=== PATIENT | female | born 1955 | race Caucasian/White ===

== ENCOUNTER 2023-01-26 12:13 | Emergency (ER) | payer MEDICARE, OTHER ==
[~2023-01-26] VITALS: Ht 165.1 cm; Wt 92.3 kg
[~2023-01-26 12:13] MED LIST: ABILIFY2 MG PO; ADDERALL 20 MG20 MG PO; AMITRIPTYLINE H25 MG PO; AMITRIPTYLINE H50 MG PO; CIPROFLOXACIN500 MG PO; CYCLOBENZAPRINE10 MG PO; FISH OIL 1,0001 EAC2 NG; FLUTICASONE PRO16 GM NS; HYDROCODON-ACE1 EA11 PO; IBUPROFEN200 M1 PO; METOPROLOL SUC100 MG PO; NEURONTIN300 MG PO; OMEPRAZOLE40 MG PO; PAROXETINE HCL20 MG PO; SERTRALINE HCL100 MG PO; TIZANIDINE HCL4 MG PO; VENLAFAXINE HC225 MG PO; VITAMIN C1000 MG PO; VITAMIN D350000 UNIT PO; ZYRTEC10 MG
[2023-01-26 12:38] LABS: BASOPHILS 0.8 % (0-2); EOSINOPHILS 3.7 % (0-6); HEMATOCRIT 42.6 % (35.0-50.0); HEMOGLOBIN 14.2 g/dL (12.0-18.0); LYMPHOCYTES 36.2 % (24-44); MCH 28.8 (27-36); MCHC 33.3 g/dl (30-36); MCV 86.4 fl (81-99); MONOCYTES 7.6 % (0-12); NEUTROPHILS 51.7 % (39-80); PLATELET COUNT 356 K/uL (140-440); RBC 4.94 M/ul (4.3-5.7); RDW 14.1 (10.5-15.0)
--- NOTE | 2023-01-26 12:42 | EKG ---
[facility] [address] [facility] [place] [address] Signed Sinus tachycardia Moderate voltage criteria for LVH, may be normal variant ( R in aVL , Mcgraw product ) Nonspecific ST abnormality Abnormal ECG When compared with ECG of 12-DEC-2020 11:19, Nonspecific T wave abnormality has replaced inverted T waves in Inferior leads Nonspecific T wave abnormality, improved in Anterolateral leads Confirmed by TOBIAS DEXTER MD ([id number]) on 01/26/2023 12:42:45 PM Electronically Signed By: TOBIAS DEXTER 01/26/23 1242 PATIENT NAME: PAM TRACY [facility] Electrocardiogram DATE OF : 53 PHYSICIAN: TOBIAS DEXTER REPORT #: [id number] REPORT IS CONFIDENTIAL AND NOT TO BE RELEASED WITHOUT AUTHORIZATION
[2023-01-26 13:13] LABS: ALBUMIN 4.2 g/dL (3.4-5.0); ALBUMIN/GLOBULIN RATIO 0.89 (1.1-2.4); ANION GAP 17.8 (7-21); BILIRUBIN, TOTAL 0.4 ng/dL (0.2-1.0); BUN/CREATININE RATIO 20.68 (6.0-28.6); CALCIUM 9.4 mg/dL (8.5-10.1); CREATININE, SERUM 0.87 mg/dL (0.55-1.02); MAGNESIUM 2.1 mg/dL (1.8-2.4); POTASSIUM 3.8 mmol/L (3.5-5.1); PROTEIN, TOTAL 8.9 g/dL (6.4-8.2)
[2023-01-26 15:52] VITALS: BP 119/83
== END 2023-01-26 15:51 | disposition home or self-care (01) ==
LOC: ED 12:13
PROVIDERS: Emergency Medicine
DX: R06.00 Dyspnea, unspecified (principal); F41.9 Anxiety disorder, unspecified; I10 Essential (primary) hypertension; Z79.899 Other long term (current) drug therapy
CPT/HCPCS: 36415; 71045; 80053; 83735; 83880; 84484; 85025; 85379; 93005; 93010; 99285-25

== ENCOUNTER 2024-09-01 08:58 | Emergency (ER) | payer MEDICARE, OTHER ==
[~2024-09-01] VITALS: Ht 165.1 cm; Wt 97.0 kg
[2024-09-01] MEDS ORDERED: LIDOCAINE HCL 4% 1 EACH PATCH TD ONE (09:15)
[2024-09-01] MEDS ORDERED: HYDROCODONE/ACETA 5/325 TAB PO ONE (09:15)
[2024-09-01] MEDS ORDERED: IBUPROFEN 600 MG TAB PO ONE (09:15)
[2024-09-01 11:51] VITALS: BP 133/101
[2024-09-01] MEDS ORDERED: LIDOCAINE PATCH REMOVAL 1 EA TD SCH (21:00)
== END 2024-09-01 11:53 | disposition home or self-care (01) ==
LOC: ED 08:58
DX: S22.41XA Multiple fractures of ribs, right side, initial encounter for closed fracture (principal); I10 Essential (primary) hypertension; Z79.899 Other long term (current) drug therapy; Z79.2 Long term (current) use of antibiotics; W18.30XA Fall on same level, unspecified, initial encounter
CPT/HCPCS: 71100; 71250; 99284-25; A9270